=== PATIENT | female | born 1985 ===

== ENCOUNTER 2018-12-09 11:22 | Outpatient (CLI) | payer OTHER | END 2018-12-09 11:30 | disposition home or self-care (01) | LOC: SONOGRAMA 11:22 | DX: N84.0 Polyp of corpus uteri (principal) ==

== ENCOUNTER → 2019-09-04 | Emergency (ER) | payer OTHER ==
[~2019-09-04] VITALS: Ht 170.2 cm; Wt 97.5 kg
== END | disposition left against medical advice (07) ==
LOC: ER 11:57
DX: N83.291 Other ovarian cyst, right side (principal); R10.31 Right lower quadrant pain